=== PATIENT | female | born 1935 | race Caucasian/White ===

== ENCOUNTER 2020-12-24 16:27 | Observation (INO) | payer MEDICARE ==
[~2020-12-24] VITALS: Ht 152.4 cm; Wt 66.0 kg
[~2020-12-24 16:27] MED LIST: ARMOUR THYRO30 MG PO; CITALOPRAM40 MG PO; LEVOTHYROXIN75 MCG PO; METRONIDAZOL500 MG PO; NO; PERCOCET 5/325M1 TAB PO
--- NOTE | 2020-12-24 16:30 | NUR ---
PATIENT TO ROOM VIA WHEELCHAIR AND PHYSICIAN NOTIFIED OF PATIENT STATUS
--- NOTE | 2020-12-24 17:43 | NUR ---
PT RECONNECTED TO MONITORING EQUIPMENT AND MEDICATION GIVEN FOR PAIN. DENIES ANY OTHER NEEDS AT THIS TIME
--- NOTE | 2020-12-24 18:32 | NUR ---
PT STATES THAT PAIN HAS RELIEVED COMPLETELY. DENIES ANY NEEDS AT THIS TIME. SHE IS LAYING IN BED WATCHING TV
--- NOTE | 2020-12-24 18:47 | NUR ---
GAVE REPORT TO LLOYD
[2020-12-24 18:49] LABS: IMMATURE GRANULOCYTES 0.3 % (0.0-5.0); MEAN CELL VOLUME 87.9 fL CALC (80.0-100.0); MEAN CORPUSCULAR HGB 26.9 pG CALC (26.0-32.0); MEAN CORPUSCULAR HGB CONC 30.7 g/dL CAL (32.0-36.0); NEUT# 4.73 thou/uL (2.00-7.15); RED BLOOD COUNT 4.12 mill/uL (4.20-5.60); RED CELL DISTRI WIDTH 15.3 % (11.5-15.5)
[2020-12-24 18:50] LABS: HEMATOCRIT 36.2 % (37.0-47.0); HEMOGLOBIN 11.1 g/dl (12.0-16.0)
--- NOTE | 2020-12-24 18:53 | NUR ---
RECIEVED REPORT FROM LOAN CHANDRA CARE OF PATIENT. Reassessment of patient completed. No distress noted.
[2020-12-24 18:56] LABS: ALKALINE PHOSPHATASE 88 u/l (38-126); ANION GAP 8 (6-22 (CALC)); BUN 14 mg/dL (8-23); BUN/CREATININE RATIO 14 (12-20 (CALC)); CARBON DIOXIDE 30 mmol/l (22-30); CHLORIDE 106 mmol/l (95-108); GFR 53 ML/MIN (>=60 (CALC)); GFR FOR AFR.AMER. > 60 ML/MIN (>=60 (CALC)); SGOT/AST 36 u/l (9-36); SODIUM 139 mmol/l (137-146); TOTAL PROTEIN 6.7 g/dL (6.3-8.2)
[2020-12-24 18:57] LABS: ACT PARTIAL THROMBO TIME 23.1 SECONDS (20.0-32.5); INTERNATIONAL NORMALIZED RATIO 1.1 RATIO (0.7-1.3); PROTHROMBIN TIME 11.1 SECONDS (9.0-12.5)
[2020-12-24 18:58] LABS: ALBUMIN 3.5 g/dL (3.2-5.0); BILIRUBIN, TOTAL 0.4 mg/dL (0.0-1.4)
--- NOTE | 2020-12-24 19:52 | NUR ---
Reassessment of patient completed. No distress noted. PT TO RADIOLOGY FOR CHEST CT.
--- NOTE | 2020-12-24 22:05 | NUR ---
SPOKE WITH Shakeel RAE RN, ED CHARGE NURSE. ROOM 270 ASSIGNED FOR PATIENT AT THIS TIME.
--- NOTE | 2020-12-24 22:15 | NUR ---
TELEPHONE REPORT RECEIVED FROM Shakeel GONZALEZ RN IN ED, ROOM 270 PREPARED TO RECEIVE PT.
[2020-12-24 22:28] VITALS: BP 157/82
--- NOTE | 2020-12-24 22:28 | NUR ---
PT ARRIVES TO UNIT @ 2228 VIA WHEEL CHAIR, ACCOMPANIED BY Shakeel GONZALEZ RN. PT AMBULATORY TO BATHROOM AND BACK TO BED. ORIENTED TO ROOM AND UNIT.
--- NOTE | 2020-12-24 22:34 | NUR ---
Admission Note Report Given to: [facility] Transported by: X Wheelchair Stretcher Transported with: X Nurse Transporter X Patent IV O2 X Punch Box Tender Location: ICU X MS2
--- NOTE | 2020-12-24 22:35 | NUR ---
SNACK AND DRINK PROVIDED BY Nicole SAHA CNA
--- NOTE | 2020-12-24 22:45 | NUR ---
ADMISSION AND ASSESMENT COMPLETE. PT IS PLEASANT, A/OX3. DENIES PAIN. LLE FREE OF PAIN, ERYTHEMA, OR EDEMA. NERUOVASCULAR EXAM NEGATIVE, C/M/S INTACT. PHYSICAL ASSESMENT GROSSLY NEGATIVE. R-AC #20G IV PATENT AND SALINE LOCKED. PT DENIES NEEDS AT THIS TIME WHEN ASKED. PLAN OF CARE REVIEWED, PT VERBALIZES UNDERSTANDING. CALL ARIAS WITHIN REACH, AGREES TO CALL PRN. BED LOCKED IN LOW POSITION WITH BEDRAILS UP X2.
[2020-12-25] VITALS: BP 140/70
--- NOTE | 2020-12-25 00:30 | NUR ---
PT APPEARS TO BE SLEEPING COMFORTABLY, LAYING IN BED WITH EYES CLOSED, RESPIRATIONS REGUALR AND UNLABORED. NO APPARENT DISTRESS OR DISCOMFORT. CALL ARIAS REMAINS WITHIN REACH.
--- NOTE | 2020-12-25 02:00 | NUR ---
TECHNICAL SUPPORT ASSISTANT AT BEDSIDE TO COLLECT TROPONIN.
--- NOTE | 2020-12-25 02:58 | NUR ---
TROPONIN RESULTED AND ASSESSED, RESULT <0.012ng/ml.
[2020-12-25 04:00] VITALS: BP 120/72
--- NOTE | 2020-12-25 05:08 | NUR ---
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 NSR W/ SA 77BPM.
--- NOTE | 2020-12-25 05:34 | NUR ---
Nishant MONTES GRADUATE FELLOW AT BEDSIDE COLLECTING AM LABS.
[2020-12-25 06:09] LABS: CHOLESTEROL HDL RATIO 3.7 (<4.4 (CALC))
[2020-12-25 06:40] LABS: TSH, 3RD GENERATION 0.44 uIU/mL (0.47 - 4.68)
--- NOTE | 2020-12-25 06:47 | NUR ---
ORDER CLARIFICATION RECEIVED FROM DR. GRAHAM TO ADJUST LOVENOX DOSE RECOMENDED BY RX.
[2020-12-25] MEDS ORDERED: OMEPRAZOLE20 MG PO (07:13)
[2020-12-25] MEDS ORDERED: SERTRALINE50 MG PO (07:14)
[2020-12-25] MEDS ORDERED: LEVOTHYROXIN88 MC1 PO (07:14)
[2020-12-25 07:24] VITALS: BP 121/68
--- NOTE | 2020-12-25 09:27 | NUR ---
PT SEEN AWAKE, ALERT, ORIENTED X 3. LUNGS CLEAR, RA. PT IS AMBULATORY IN ROOM WITHOUT DIFFICULTY. PT NEEDED INFORMATION ON LOPRESSOR, WHAT IT DOES AND WHY IT IS IMPORTANT, PROVIDED. NO DISTRESS, NO SHORTNESS OF BREATH.
[2020-12-25 10:29] VITALS: BP 149/78
--- NOTE | 2020-12-25 12:46 | NUR ---
PT HAS BEEN NPO FOR ABDOMINAL U/S, WHERE SHE IS NOW. PT DID HAVE NAUSEA AND ONE EMESIS THIS AM, ZOFRAN PROVIDED WITH SOME RELIEF. PT IN NO DISTRESS, CONTINUES TO AMBULATE IN ROOM DESIRED.
--- NOTE | 2020-12-25 14:59 | NUR ---
PT TO MRI AT THIS TIME FOR MRCP. PT STATES THAT NAUSEA STILL NOT COMPLETELY RESOLVED.
[2020-12-25 15:46] VITALS: BP 111/66
--- NOTE | 2020-12-25 17:33 | NUR ---
PT TO MRI THIS AFTERNOON, WAITING ON RESULTS. PT MEDICATED AGAIN FOR NAUSEA PER PERSISTING ISSUE. NO DISTRESS, NO COMPLAINTS.
[2020-12-25 19:00] VITALS: BP 97/57
--- NOTE | 2020-12-25 20:00 | NUR ---
PATIENT RESTING IN BED AT THIS TIME-TALKING ON HER PHONE. ALERT AND ORIENTEDX3 WITH NO COMPLAINTS AT THIS TIME. SALINE LOCK INTACT TO RAC-SITE APPEARS HEALTHY AT THIS TIME. TELE MONITOR IN PLACE-LAST READING WAS SR-70. SAFETY PRECAUTIONS REINFORCED. CALL LIGHT IN REACH. WILL CONT TO MONITOR.
--- NOTE | 2020-12-25 21:15 | NUR ---
PATIENT RESTING IN BED AT THIS TIME-BP-97/57, HR-73. METOPROLOL HELD DUE TO LOW BP. CALL LIGHT IN REACH. WILL CONT TO MONITOR.
[2020-12-26 00:12] VITALS: BP 101/61
--- NOTE | 2020-12-26 01:00 | NUR ---
PATIENT RESTING IN BED WITH HER EYES CLOSED. RESPS ARE EVEN AND UNLABORED. APPEARS SLEEPING AT THIS TIME. TELE MONITOR IN PLACE. CALL LIGHT IN REACH. WILL CONT TO MONITOR.
--- NOTE | 2020-12-26 04:14 | NUR ---
PATIENT RESTING IN BED AT THIS TIME-EYES ARE CLOSED AND RESP ARE EVEN AND UNLABORED. TELE MONITOR IN PLACE. WILL CONT TO MONITOR.
[2020-12-26 04:26] VITALS: BP 125/67
[2020-12-26 06:46] LABS: HEMATOCRIT 31.6 % (37.0-47.0); HEMOGLOBIN 9.6 g/dl (12.0-16.0); MEAN CELL VOLUME 89.3 fL CALC (80.0-100.0); MEAN CORPUSCULAR HGB 27.1 pG CALC (26.0-32.0); MEAN CORPUSCULAR HGB CONC 30.4 g/dL CAL (32.0-36.0); RED BLOOD COUNT 3.54 mill/uL (4.20-5.60); RED CELL DISTRI WIDTH 15.2 % (11.5-15.5)
[2020-12-26 07:10] LABS: CREATININE 1.1 mg/dL (0.5-1.0); MAGNESIUM 1.9 mg/dL (1.6-2.3); POTASSIUM 3.9 mmol/l (3.5-5.1)
[2020-12-26 07:27] VITALS: BP 123/66
--- NOTE | 2020-12-26 09:23 | NUR ---
PT SEEN AWAKE, ALERT, AMBULATORY IN ROOM. LUNGS CLEAR, RA. NO SHORTNESS OF BREATH, NO PAIN TO LEFT LEG WHERE DVT IS KNOWN. PT PROVIDED MILK OF MAGNESIA PER NO BM IN 2 DAYS. AWAITING REPORT FROM MRCP DONE YESTERDAY AFTERNOON.
[2020-12-26 10:47] VITALS: BP 116/65
[2020-12-26] MEDS ORDERED: XARELTO STARTER1 TAB PO (14:02)
[2020-12-26] MEDS ORDERED: LOPRESSOR25 MG PO (14:04)
--- NOTE | 2020-12-26 14:10 | NUR ---
PT REMAINS IN ROOM, NO COMPLAINTS OR DISTRESS. PT AWARE OF POSSIBLE DISCHARGE TO HOME TODAY.
[2020-12-26 14:55] VITALS: BP 110/58
--- NOTE | 2020-12-26 15:39 | NUR ---
PT HAS BEEN DISCHARGED TO HOME. PT VERBALIZES UNDERSTANDING OF DC INSTRUCTIONS, WAS TAKEN BY WHEELCHAIR TO HER VEHICLE. PT LEAVES IN STABLE CONDITION. JANE GALVEZ SPENT 15 MINUTES INROOM EXPLAINING DC INSTRUCTIONS TO PT AND DAUGHTER WHO WAS ON THE PHONE.
== END 2020-12-26 15:38 ==
LOC: ED 16:27 → ED-I 17:10 → ED 17:10 → ED-I 21:05 → ED 21:17 → MS2 21:18
PROVIDERS: Family Medicine; Nurse Practitioner; ADMIT Internal Medicine; ATTEND Internal Medicine
DX: I82.412 Acute embolism and thrombosis of left femoral vein (principal); I82.432 Acute embolism and thrombosis of left popliteal vein; I48.0 Paroxysmal atrial fibrillation; R91.1 Solitary pulmonary nodule; E03.9 Hypothyroidism, unspecified; F32.9 Major depressive disorder, single episode, unspecified; Z86.718 Personal history of other venous thrombosis and embolism; Z20.822 Contact with and (suspected) exposure to COVID-19
CPT/HCPCS: G0378; J1650; Q9967